=== PATIENT | female | born 1960 | race Two or more races ===

== ENCOUNTER 2019-08-09 09:30 | Outpatient (CLI) | payer BC | END 2019-08-09 23:59 | disposition home or self-care (01) | LOC: WOU 09:30 | PROVIDERS: ATTEND Surgery | DX: N65.0 Deformity of reconstructed breast (principal); Z98.82 Breast implant status; Z85.3 Personal history of malignant neoplasm of breast; Z96.641 Presence of right artificial hip joint | CPT/HCPCS: G0463 ==